=== PATIENT | male | born 1955 | race Caucasian/White ===

== ENCOUNTER → 2024-02-12 06:43 | Outpatient (REF) | payer OTHER, SELFPAY ==
[2024-02-12 09:50] LABS: ALT (SGPT) 22 U/L (0-50); AST (SGOT) 31 U/L (17-59); Albumin 4.2 g/dl (3.5-5.0); Alkaline Phosphatase 75 U/L (38-126); Blood Urea Nitrogen 26 mg/dl (9-20); Calcium 9.1 mg/dl (8.4-10.2); Carbon Dioxide 29 mmol/L (22-30); Chloride 105 mmol/L (98-107); Glucose 114 mg/dl (70-99); HDL Cholesterol 82 mg/dl; LDL Cholesterol, Calculated 90 mg/dl; Sodium 140 mmol/L (135-145); Total Bilirubin 0.4 mg/dl (0.2-1.3); Total Cholesterol 183 mg/dl (50-199); Total Protein 6.9 g/dl (6.3-8.2); Triglyceride 59 mg/dl (10-149); Very Low Density Lipoprotein 11 mg/dl (0-30); eGFR 51.03
[2024-02-12 09:55] LABS: PSA, Total - Screen 1.23 ng/ml (0.0-4.0); TSH Reflex To Free T4 0.94 uIU/ml (0.47-4.68)
== END ==
LOC: REG 06:43
PROVIDERS: ATTENDING PHYSICIAN Internal Medicine; FAMILY PHYSICIAN Family Medicine
DX: R73.01 Impaired fasting glucose (principal); Z12.5 Encounter for screening for malignant neoplasm of prostate; E78.00 Pure hypercholesterolemia, unspecified
CPT/HCPCS: 36415; 80053; 80061; 83036; 84443; G0103

== ENCOUNTER → 2024-07-10 06:33 | Outpatient (REF) | payer OTHER, SELFPAY ==
[2024-07-10 07:41] LABS: % Basophils 0.6 % (0-2); % Eosinophils 5.4 % (0-6); % Lymphocytes 36.3 % (20.5-51.1); % Monocytes 10.8 % (1.7-9.3); % Neutrophils 46.9 % (42.2-75.2); Absolute Eosinophils 0.3 10^3/uL (0-0.7); Absolute Lymphocytes 1.7 10^3/uL (1.2-3.4); Absolute Monocytes 0.5 10^3/uL (0.1-0.6); Absolute Neutrophils 2.2 10^3/uL (1.4-6.5); Hematocrit 38.5 % (39.0-52.0); Hemoglobin 12.7 g/dL (13.0-18.0); Mean Corpuscular Volume 87.9 fL (80.0-94.0); Mean Platelet Volume 9.4 fL (7.4-10.4); Nucleated Red Blood Cells % 0 % (-); Platelet Count 217 10^3/uL (130-400); Red Blood Cell Count 4.38 10^6/uL (4.70-6.10); Red Cell Dist. Width 14.7 % (11.5-14.5); White Blood Cell Count 4.7 10^3/uL (4.8-10.8)
[2024-07-10 08:26] LABS: Vitamin D, 25-OH*** 62.3 ng/mL (30-80)
[2024-07-10 08:40] LABS: PSA, Total - Screen 1.14 ng/ml (0.0-4.0); TSH Reflex To Free T4 1.79 uIU/ml (0.47-4.68)
[2024-07-10 09:05] LABS: ALT (SGPT) 24 U/L (0-50); AST (SGOT) 27 U/L (17-59); Albumin 4.7 g/dl (3.5-5.0); Alkaline Phosphatase 69 U/L (38-126); Blood Urea Nitrogen 25 mg/dl (9-20); Calcium 9.5 mg/dl (8.4-10.2); Carbon Dioxide 28 mmol/L (22-30); Chloride 102 mmol/L (98-107); Glucose 104 mg/dl (70-99); HDL Cholesterol 89 mg/dl; LDL Cholesterol, Calculated 100 mg/dl; Sodium 141 mmol/L (135-145); Total Bilirubin 0.6 mg/dl (0.2-1.3); Total Cholesterol 211 mg/dl (50-199); Total Protein 7.2 g/dl (6.3-8.2); Triglyceride 114 mg/dl (10-149); Very Low Density Lipoprotein 22 mg/dl (0-30); eGFR > 60.00
[2024-07-10 09:34] LABS: Glycohemoglobin (HgbA1c) 5.9 % (4.0-5.6)
== END ==
LOC: REG 06:33
PROVIDERS: ATTENDING PHYSICIAN Family Medicine
DX: R53.83 Other fatigue (principal); Z13.29 Encounter for screening for other suspected endocrine disorder; E55.9 Vitamin D deficiency, unspecified; R73.01 Impaired fasting glucose; E78.00 Pure hypercholesterolemia, unspecified; Z12.5 Encounter for screening for malignant neoplasm of prostate
CPT/HCPCS: 36415; 80053; 80061; 82306; 83036; 84443; 85025; G0103

== ENCOUNTER 2025-01-30 06:26 | Day surgery (SDC) | payer OTHER, SELFPAY | END 2025-01-30 11:49 | disposition home or self-care (01) | LOC: GI 06:26 | PROVIDERS: ATTENDING PHYSICIAN Specialist | DX: Z12.11 Encounter for screening for malignant neoplasm of colon (principal); K57.30 Diverticulosis of large intestine without perforation or abscess without bleeding; K64.8 Other hemorrhoids; K31.7 Polyp of stomach and duodenum; K31.89 Other diseases of stomach and duodenum; R12 Heartburn; K29.50 Unspecified chronic gastritis without bleeding; K22.9 Disease of esophagus, unspecified; K22.89 Other specified disease of esophagus; Z86.0100 Personal history of colon polyps, unspecified | CPT/HCPCS: 43239; G0105; 88305; 88342 ==

== ENCOUNTER → 2025-02-12 06:44 | Outpatient (REF) | payer OTHER, SELFPAY ==
[2025-02-12 07:47] LABS: % Basophils 0.9 % (0-2); % Eosinophils 9.7 % (0-6); % Immature Granulocytes 0.2 % (0-0.5); % Lymphocytes 35.1 % (20.5-51.1); % Monocytes 10.3 % (1.7-9.3); % Neutrophils 43.8 % (42.2-75.2); Absolute Eosinophils 0.5 10^3/uL (0-0.7); Absolute Lymphocytes 1.6 10^3/uL (1.2-3.4); Absolute Monocytes 0.5 10^3/uL (0.1-0.6); Hematocrit 36.4 % (39.0-52.0); Hemoglobin 11.7 g/dL (13.0-18.0); Mean Corp Hgb Conc. 32.1 g/dL (33.0-37.0); Mean Corpuscular Hgb 28.5 pg (27.0-31.0); Mean Corpuscular Volume 88.6 fL (80.0-94.0); Mean Platelet Volume 9.7 fL (7.4-10.4); Nucleated Red Blood Cells % 0 % (-); Platelet Count 192 10^3/uL (130-400); Red Blood Cell Count 4.11 10^6/uL (4.70-6.10); Red Cell Dist. Width 14.3 % (11.5-14.5); White Blood Cell Count 4.6 10^3/uL (4.8-10.8)
[2025-02-12 08:14] LABS: ALT (SGPT) 19 U/L (0-50); AST (SGOT) 21 U/L (17-59); Albumin 4.1 g/dl (3.5-5.0); Alkaline Phosphatase 65 U/L (38-126); Blood Urea Nitrogen 23 mg/dl (9-20); Calcium 9.2 mg/dl (8.4-10.2); Carbon Dioxide 29 mmol/L (22-30); Chloride 107 mmol/L (98-107); Glucose 105 mg/dl (70-99); HDL Cholesterol 64 mg/dl; LDL Cholesterol, Calculated 101 mg/dl; Potassium 4.7 mmol/L (3.5-5.1); Sodium 141 mmol/L (135-145); Total Bilirubin 0.4 mg/dl (0.2-1.3); Total Cholesterol 183 mg/dl (50-199); Total Protein 6.5 g/dl (6.3-8.2); Triglyceride 90 mg/dl (10-149); Very Low Density Lipoprotein 18 mg/dl (0-30); eGFR > 60.00
[2025-02-12 08:23] LABS: Total Iron Binding Capacity 357 ug/dl (261-462)
[2025-02-12 08:46] LABS: Ferritin 7.7 ng/ml (17.9-464.0)
[2025-02-12 11:13] LABS: Glycohemoglobin (HgbA1c) 5.9 % (4.0-5.6)
== END ==
LOC: REG 06:44
PROVIDERS: ATTENDING PHYSICIAN Family Medicine
DX: R73.01 Impaired fasting glucose (principal); E78.00 Pure hypercholesterolemia, unspecified; D64.9 Anemia, unspecified
CPT/HCPCS: 36415; 80053; 80061; 82728; 83036; 83550; 85025

== ENCOUNTER → 2025-05-21 14:08 | Outpatient (REF) | payer MEDICARE, SELFPAY | LOC: DHSLP 14:08 | PROVIDERS: ATTENDING PHYSICIAN Family Medicine | DX: G47.33 Obstructive sleep apnea (adult) (pediatric) (principal) | CPT/HCPCS: 95800 ==

== ENCOUNTER 2025-05-27 13:11 | Emergency (ER) | payer MEDICARE, OTHER, SELFPAY ==
[2025-05-27 13:14] VITALS: BP 143/87
--- NOTE | 2025-05-27 13:39 | ED.GENMED ---
History of Present Illness
General
Chief Complaint: Back Pain
Time Seen by Provider: 05/27/25 13:38
History of Present Illness
History of Present Illness:
FOCUSED PAST MEDICAL HISTORY
- High blood pressure, OCD, GERD, has had bilateral knee surgeries in the past
REVIEW OF OLD RECORDS
- I reviewed records, the patient had colonoscopy and endoscopy earlier this year
Note:
CHIEF COMPLAINT(S)
Low back pain.
HISTORY OF PRESENT ILLNESS
The patient is a 70-year-old male who presents with right-sided low back pain that began nine days ago, following the activity of lifting suitcases on May 18. He reports that the pain is localized and not radiating down the legs, indicating
the absence of sciatica-like symptoms. The patient denied any associated fever or history of metastatic disease. The pain seems to be musculoskeletal in nature, as the patient describes his experience, 'Its like a wave or reverberation.' The patient
has previously taken rggm-mme-cwagiur medications including a topical analgesic gel and ibuprofen, as well as a single dose of metocarbamol without significant relief. He also reports a previous incident of a similar nature years ago, which resolved
following an injection of corticosteroids into the affected area.
SOCIAL DETERMINANTS AFFECTING HEALTH
The patient mentions insurance considerations affecting coverage for Lidocaine patches and refers to financial limitations regarding treatment options.
MEDICATIONS
- Ohsa-elz-fcwbcwr ibuprofen, as needed for pain.
- Ferrous sulfate daily for anemia.
PHYSICAL EXAM
General: Alert; no acute distress. Appears comfortable.
Skin: Warm and dry.
Neck: Supple, midline trachea.
Eye, Ears, Nose, Mouth, and Throat: Moist oral mucosa.
Cardiovascular: Normal peripheral perfusion, no edema.
Respiratory: Non-labored respirations.
Gastrointestinal: Nondistended abdomen.
Back: Minimal tenderness over the right side of the low back; no vertebral tenderness reported during examination of the C, T, L-spine
Musculoskeletal: Normal range of motion; muscle strength intact.
Neurological: Alert and oriented to person, place, time, and situation; no focal neurological deficits. Excellent strength in the lower extremities
Psychiatric: Cooperative, with appropriate mood and affect.
PROBLEM LIST
- Acute: Right-sided low back pain
PLAN
1. Administer an injection (Toradol) for acute pain management.
2. Prescribe Lidocaine patches for topical pain relief; provide a prescription with the consideration of insurance coverage.
3. Advise the patient to increase the dose of ibuprofen, recommending 600-800 mg with food, up to three times daily for pain management while being mindful of gastrointestinal side effects. Recommended PPI.
4. Discuss non-steroidal anti-inflammatory drug (NSAID) use and potential side effects, especially given the patient�s age.
5. Arrange for a prescription to be sent to the patients preferred pharmacy.
DIFFERENTIAL DIAGNOSIS
The Differential Diagnosis includes, in no particular order and is not limited to:
1. Muscular strain
2. Lumbar strain
3. Herniated intervertebral disc
4. Spinal stenosis
5. Spondylolisthesis
6. Facet syndrome
7. Osteoarthritis of the lumbar spine
8. Radiculopathy
9. Compression fracture
10. Epidural abscess
Disposition:
SUMMARY OF ENCOUNTER
The patient presented to the emergency department with complaints of right-sided low back pain, consistent with lumbar muscle strain. There were no red flags for more serious conditions, and the strength in the lower extremities was excellent upon
examination. The patient had previously tried vjxw-pgd-xmnfwji medications and metocarbamol without significant relief. Given these findings, a decision was made to manage the pain with a cortisone injection (Toradol) and prescribed Lidocaine
patches for topical pain relief. The patients insurance coverage was a consideration for prescription medications.
PLAN
Administered Toradol injection for immediate pain relief. Prescribed Lidocaine patches, considering patients insurance coverage for affordability. Recommended increasing ibuprofen dosage to 600-800 mg with food, up to three times daily for pain
management, while advising on the potential gastrointestinal side effects. Discussed NSAID usage and its side effects with the patient given his age. Arranged to send prescriptions to the patients preferred pharmacy.
MEDICATION RECONCILIATION
1. Toradol (Ketorolac Tromethamine) - administered as a single injection for acute pain relief.
2. Lidocaine patches - prescribed for local pain management, considering insurance coverage.
3. Ibuprofen - recommendation to increase dosage from toci-oco-raimvuk use, up to three times daily with food.
MEDICAL DECISION MAKING
1. Number and Complexity of Problems Addressed: Chronic conditions affecting care include past similar incidents resolved with corticosteroids.
- Differential diagnosis includes: Muscular strain, Lumbar strain, Herniated intervertebral disc, Spinal stenosis, Spondylolisthesis, Facet syndrome, Osteoarthritis of the lumbar spine, Radiculopathy, Compression fracture, Epidural abscess.
2. Data:
Category 1:
No labs or imaging ordered in this encounter since symptoms were consistent with lumbar muscle strain.
Category 3:
Management plan discussed during the patient encounter for outpatient pain management due to presenting symptoms and past medical history.
3. Risk:
Prescription medication was prescribed with consideration given to the patients ability to tolerate NSAIDs at the increased dose for pain management. Consideration of hospital admission was not necessary based on the non-red flag nature of the
present condition.
Care significantly affected by Social Determinants of Health: Insurance limitations and financial considerations regarding treatment choices were taken into account.
DIAGNOSIS
1. Lumbar strain - ICD-10: M54.5
Past History
Past History
ED Past Medical History: None
ED Past Surgical History: None
Social History
Tobacco: Non-smoker
Alcohol: None
Phy Exam
Physical Exam
Physical Exam:
See HPI
Course
Orders/Labs/Results
Orders:
Orders
05/27/25 13:55
Ketorolac [Toradol] 30 mg IM NOW STA
Vital Signs
Initial and Last Documented VS:
Initial Vital Signs
Temp Pulse Resp BP Pulse Ox
36.7 C 78 18 143/87 96
05/27/25 13:14 05/27/25 13:14 05/27/25 13:14 05/27/25 13:14 05/27/25 13:14
Last Documented Vital Signs
Temp Pulse Resp BP Pulse Ox
36.7 C 78 18 143/87 96
05/27/25 13:14 05/27/25 13:14 05/27/25 13:14 05/27/25 13:14 05/27/25 13:40
*Pulse Oximetry
SaO2: 96
Oxygen Mode of Delivery: Room air
Patient hypoxic: no
*Critical Care Note
Total Time (30-74mins, 75-104mins- exclusive of procedures): Not Applicable
ED Attending Note
-
Portions of this chart may have been created with voice recognition software.� Occasional wrong word or��sound alike� substitutions may have occurred due to the inherent limitations of voice recognition software.
Discharge Plan
Departure
Patient Disposition: Home (Routine Discharge)
Date of Disposition: 05/27/25
Time of Disposition: 13:55
Patient with high blood pressure during this ER visit?: Yes
Discharge Problem:
Acute lumbar myofascial strain
Instructions: Low Back Pain (DC), BLOOD PRESSURE
Prescriptions:
New
lidocaine [Lidoderm] 5 % adhesive patch,medicated
1 patch topical DAILY Qty: 15 0RF
No Action
cyclobenzaprine 10 MG tablet
10 mg PO BIDPRN PRN (Reason: spasm) Qty: 14 0RF
diclofenac sodium 25 MG tablet,delayed release (DR/EC)
25 mg PO BIDPRN PRN (Reason: pain) Qty: 20 0RF
Referrals:
Fabricio Gama Jr., DO [Family Provider, Internal Medicine]
Activity Restrictions/Additional Instructions:
I recommend 3-4 uyef-ddy-stbhfqy ibuprofen (Motrin) every 8 hours with food for a few days. Return here if worse. I also sent a prescription for lidocaine patch to your pharmacy�if insurance does not cover this, you could just use the
abxw-phe-ioqtwpx lidocaine patches. You could also consider trying Salonpas instead.
If you use the lidocaine patch, I recommend that you use it in the morning and take it off at nighttime and leave it off at nighttime while you are sleeping.
I also recommend taking a 2-week course of zmes-lkk-wrcgjuk omeprazole to help prevent stomach irritation while on NSAIDs.
Follow-up with your orthopedist. Return here if worse or other concerns.
Interventions
Interventions:
*Risk Screen - Suicide Last Done: 05/27/25 13:14
*General Assessment Last Done: 05/27/25 13:14
*Neglect/Abuse Screening Last Done: 05/27/25 13:14
*ED COVID-19 Vaccine History Last Done: 05/27/25 13:14
*ED Influenza Vaccine History Last Done: 05/27/25 13:14
Discharge Date and Time
Print Language: LATVIAN
[2025-05-27] MEDS: TORADOL 30 MG IM (14:07)
== END 2025-05-27 14:18 | disposition home or self-care (01) ==
LOC: EMR 13:11
PROVIDERS: EMERGENCY PHYSICIAN Emergency Medicine; FAMILY PHYSICIAN Family Medicine
DX: S39.012A Strain of muscle, fascia and tendon of lower back, initial encounter (principal); X50.0XXA Overexertion from strenuous movement or load, initial encounter
CPT/HCPCS: 96372; 99284

== ENCOUNTER → 2025-06-24 06:55 | Outpatient (REF) | payer MEDICARE, OTHER, SELFPAY ==
[2025-06-24 08:57] LABS: ALT (SGPT) 27 U/L (0-50); AST (SGOT) 26 U/L (17-59); Albumin 4.5 g/dl (3.5-5.0); Alkaline Phosphatase 76 U/L (38-126); Blood Urea Nitrogen 26 mg/dl (9-20); Calcium 9.4 mg/dl (8.4-10.2); Carbon Dioxide 30 mmol/L (22-30); Chloride 103 mmol/L (98-107); Glucose 112 mg/dl (70-99); HDL Cholesterol 72 mg/dl; LDL Cholesterol, Calculated 98 mg/dl; Potassium 4.9 mmol/L (3.5-5.1); Sodium 141 mmol/L (135-145); Total Protein 7.1 g/dl (6.3-8.2); Very Low Density Lipoprotein 22 mg/dl (0-30); eGFR > 60.00
[2025-06-24 09:55] LABS: Glycohemoglobin (HgbA1c) 5.9 % (4.0-5.9)
== END ==
LOC: REG 06:55
PROVIDERS: ATTENDING PHYSICIAN Family Medicine
DX: E78.00 Pure hypercholesterolemia, unspecified (principal); R73.01 Impaired fasting glucose; D64.9 Anemia, unspecified; R53.83 Other fatigue
CPT/HCPCS: 36415; 80053; 80061; 83036